=== PATIENT | female | born 1990 | race Caucasian/White ===

== ENCOUNTER → 2017-10-20 | Outpatient (CLI) | payer OTHER ==
[~2017-10-20] MED LIST: Silvadene20 GM TOP
== END ==
LOC: LAB EV 17:25 → LAB SHORT 17:25
DX: N39.0 Urinary tract infection, site not specified (principal)
CPT/HCPCS: 87077; 87086; 87186

== ENCOUNTER → 2017-12-13 | Outpatient (CLI) | payer OTHER | END | disposition home or self-care (01) | LOC: LAB 16:12 → LAB SHORT 16:12 | PROVIDERS: Obstetrics & Gynecology | DX: Z12.4 Encounter for screening for malignant neoplasm of cervix (principal) | CPT/HCPCS: G0123 ==

== ENCOUNTER → 2018-01-09 | Outpatient (CLI) | payer OTHER ==
[2018-01-09 18:52] LABS: BASOPHILS ABSOLUTE AUTO 0.05 K/mm3 (0.00-0.23); BASOPHILS PERCENT AUTO 1 % (0-2); EOSINOPHILS ABSOLUTE AUTO 0.16 K/mm3 (0.00-0.68); EOSINOPHILS PERCENT AUTO 2 % (0-6); Hematocrit 44.3 % (33.0-51.0); Hemoglobin 15.2 g/dL (11.5-16.0); IMMATURE GRAN ABSOLUTE AUTO 0.01 K/mm3 (0.00-0.10); IMMATURE GRAN PERCENT AUTO 0 % (0-1); LYMPHOCYTES ABSOLUTE AUTO 1.02 K/mm3 (0.84-5.20); LYMPHOCYTES PERCENT AUTO 12 % (21-46); MONOCYTES PERCENT AUTO 7 % (4-13); Mean Corpuscular HGB 28.1 pg (26.0-34.0); Mean Corpuscular HGB Conc 34.3 g/dL (31.5-36.5); Mean Corpuscular Volume 82 fL (80-100); Mean Platelet Volume 11.4 fL (9.1-12.4); NEUTROPHILS ABSOLUTE AUTO 6.85 K/mm3 (1.96-9.15); NEUTROPHILS PERCENT AUTO 79 % (41-73); NRBC ABSOLUTE 0.02 K/mm3 (0.00-0.02); NRBC Auto 0.2 /100 WBC (0.0-0.2); Platelet Count 260 K/mm3 (150-400); RDW Coefficient Variation 12.8 % (11.7-14.2); RDW Standard Deviation 37.4 fL (35.1-46.3); Red Blood Cell Count 5.41 M/mm3 (3.80-5.20); White Blood Cell Count 8.69 K/mm3 (4.00-11.30)
[2018-01-09 19:02] LABS: Alanine Aminotransfer (ALT/SGP 43 U/L (12-78); Albumin, Blood 4.3 g/dL (3.4-5.0); Albumin/Globulin Ratio 1.2 (0.8-1.8); Alk Phos 68 U/L (40-126); Anion Gap 14 mmol/L (6-16); Aspartate Aminotrans (AST/SGOT 20 U/L (12-37); Blood Urea Nitrogen 7 mg/dL (8-24); Bun/Creatinine Ratio 9.1 (12.0-20.0); CO2, Blood 24 mmol/L (21-32); Calcium, Blood 9.7 mg/dL (8.5-10.1); Chloride, Blood 101 mmol/L (98-108); Creatinine, Blood 0.77 mg/dL (0.40-1.00); Globulin, Blood 3.7 g/dL (2.2-4.0); Glomerular Filtration Rate >60 (60-); Glucose, Blood 96 mg/dL (70-99); Sodium, Blood 139 mmol/L (136-145)
== END | disposition home or self-care (01) ==
LOC: LAB EV 18:47 → LAB SHORT 18:47
PROVIDERS: Physician Assistant Medical
DX: R50.9 Fever, unspecified (principal)
CPT/HCPCS: 80053; 85025

== ENCOUNTER 2019-03-08 10:29 | Inpatient (IN) | payer OTHER ==
[~2019-03-08] VITALS: Ht 154.9 cm; Wt 110.0 kg
[2019-03-08 11:00] LABS: BASOPHILS ABSOLUTE AUTO 0.04 K/mm3 (0.00-0.23); BASOPHILS PERCENT AUTO 0 % (0-2); EOSINOPHILS ABSOLUTE AUTO 0.11 K/mm3 (0.00-0.68); EOSINOPHILS PERCENT AUTO 1 % (0-6); Hematocrit 38.6 % (33.0-51.0); Hemoglobin 12.8 g/dL (11.5-16.0); IMMATURE GRAN ABSOLUTE AUTO 0.04 K/mm3 (0.00-0.10); IMMATURE GRAN PERCENT AUTO 0 % (0-1); LYMPHOCYTES ABSOLUTE AUTO 2.13 K/mm3 (0.84-5.20); LYMPHOCYTES PERCENT AUTO 19 % (21-46); MONOCYTES ABSOLUTE AUTO 0.78 K/mm3 (0.16-1.47); MONOCYTES PERCENT AUTO 7 % (4-13); Mean Corpuscular HGB 28.1 pg (26.0-34.0); Mean Corpuscular HGB Conc 33.2 g/dL (31.5-36.5); Mean Corpuscular Volume 85 fL (80-100); Mean Platelet Volume 11.9 fL (9.1-12.4); NEUTROPHILS ABSOLUTE AUTO 8.29 K/mm3 (1.96-9.15); NEUTROPHILS PERCENT AUTO 73 % (41-73); Platelet Count 277 K/mm3 (150-400); RDW Coefficient Variation 14.6 % (11.7-14.2); RDW Standard Deviation 45.2 fL (35.1-46.3); Red Blood Cell Count 4.55 M/mm3 (3.80-5.20); White Blood Cell Count 11.39 K/mm3 (4.00-11.30)
[2019-03-09 05:25] LABS: BASOPHILS ABSOLUTE AUTO 0.04 K/mm3 (0.00-0.23); BASOPHILS PERCENT AUTO 0 % (0-2); EOSINOPHILS ABSOLUTE AUTO 0.07 K/mm3 (0.00-0.68); EOSINOPHILS PERCENT AUTO 1 % (0-6); Hematocrit 32.6 % (33.0-51.0); Hemoglobin 10.8 g/dL (11.5-16.0); IMMATURE GRAN ABSOLUTE AUTO 0.07 K/mm3 (0.00-0.10); IMMATURE GRAN PERCENT AUTO 1 % (0-1); LYMPHOCYTES ABSOLUTE AUTO 2.11 K/mm3 (0.84-5.20); LYMPHOCYTES PERCENT AUTO 14 % (21-46); MONOCYTES ABSOLUTE AUTO 1.43 K/mm3 (0.16-1.47); MONOCYTES PERCENT AUTO 10 % (4-13); Mean Corpuscular HGB 28.9 pg (26.0-34.0); Mean Corpuscular HGB Conc 33.1 g/dL (31.5-36.5); Mean Corpuscular Volume 87 fL (80-100); Mean Platelet Volume 12.1 fL (9.1-12.4); NEUTROPHILS ABSOLUTE AUTO 11.35 K/mm3 (1.96-9.15); NEUTROPHILS PERCENT AUTO 75 % (41-73); Platelet Count 244 K/mm3 (150-400); RDW Coefficient Variation 14.6 % (11.7-14.2); RDW Standard Deviation 46.5 fL (35.1-46.3); Red Blood Cell Count 3.74 M/mm3 (3.80-5.20); White Blood Cell Count 15.07 K/mm3 (4.00-11.30)
[2019-03-09 05:39] LABS: Glucose, Blood 101 mg/dL (70-99)
--- NOTE | 2019-03-09 14:00 | NUR ---
REPORT TO ALEN CRABTREE AT APPROX 1400
--- NOTE | 2019-03-09 19:42 | NUR ---
crying and anxious difficulty feeding, latched at this time and pt feels much better.
--- NOTE | 2019-03-10 14:34 | NUR ---
PT DISCHARGED HOME. DISCHARGE INSTRUCTIONS REVIEWED WITH PT AND SO, BOTH VERBALIZED UNDERSTANDING AND DENY ANY FURTHER QUESTIONS OR CONCERNS. PRESCRIPTIONS GIVEN TO PT. NO OBVIOUS OF ACUTE DISTRESS.
== END 2019-03-10 14:25 | disposition home or self-care (01) | DRG 806 ==
LOC: OBS 10:29 → BC 10:30 → OBS 10:33 → BC 21:43
PROVIDERS: ADMIT Nurse Practitioner Obstetrics & Gynecology
PROC: 10E0XZZ Delivery of Products of Conception, External Approach (ICD-10-PCS; principal; 2019-03-08)
PROC: 0KQM0ZZ Repair Perineum Muscle, Open Approach (ICD-10-PCS; 2019-03-08)
PROC: 3E0R3BZ Introduction of Anesthetic Agent into Spinal Canal, Percutaneous Approach (ICD-10-PCS; 2019-03-08)
DX: O24.420 Gestational diabetes mellitus in childbirth, diet controlled (principal); O98.42 Viral hepatitis complicating childbirth; Z37.0 Single live birth; B15.9 Hepatitis A without hepatic coma; Z3A.38 38 weeks gestation of pregnancy; Z88.0 Allergy status to penicillin; O70.1 Second degree perineal laceration during delivery; O66.0 Obstructed labor due to shoulder dystocia
CPT/HCPCS: 36415; 51702; 82947; 85025; 85460; 86900; 86901; 96372; J1885; J2001; J2210; J2590; J2790; J3010; J7120

== ENCOUNTER 2020-04-27 07:30 | Inpatient (IN) | payer BC, OTHER ==
[~2020-04-27] VITALS: Ht 154.9 cm; Wt 116.0 kg
[2020-04-27 11:40] LABS: BASOPHILS ABSOLUTE AUTO 0.05 K/mm3 (0.00-0.23); BASOPHILS PERCENT AUTO 1 % (0-2); EOSINOPHILS ABSOLUTE AUTO 0.05 K/mm3 (0.00-0.68); EOSINOPHILS PERCENT AUTO 1 % (0-6); Hematocrit 39.7 % (33.0-51.0); Hemoglobin 12.9 g/dL (11.5-16.0); IMMATURE GRAN ABSOLUTE AUTO 0.03 K/mm3 (0.00-0.10); IMMATURE GRAN PERCENT AUTO 0 % (0-1); LYMPHOCYTES ABSOLUTE AUTO 2.04 K/mm3 (0.84-5.20); LYMPHOCYTES PERCENT AUTO 20 % (21-46); MONOCYTES ABSOLUTE AUTO 0.84 K/mm3 (0.16-1.47); MONOCYTES PERCENT AUTO 8 % (4-13); Mean Corpuscular HGB 27.9 pg (26.0-34.0); Mean Corpuscular HGB Conc 32.5 g/dL (31.5-36.5); Mean Corpuscular Volume 86 fL (80-100); Mean Platelet Volume 12.6 fL (9.1-12.4); NEUTROPHILS ABSOLUTE AUTO 7.37 K/mm3 (1.96-9.15); NEUTROPHILS PERCENT AUTO 71 % (41-73); Platelet Count 232 K/mm3 (150-400); RDW Coefficient Variation 14.2 % (11.7-14.2); RDW Standard Deviation 43.8 fL (35.1-46.3); Red Blood Cell Count 4.63 M/mm3 (3.80-5.20); White Blood Cell Count 10.38 K/mm3 (4.00-11.30)
[2020-04-27 12:30] LABS: PCO2 Cord - Arterial 55.8 mmHg (40-50); PO2 Cord - Arterial 15.9 mmHg (16-20); pH Cord - Arterial 7.27 (7.28-7.35)
[2020-04-27 12:31] LABS: PCO2 Cord - Venous 38.5 mmHg (40-50); pH Umbilical Cord - Venous 7.35 (7.26-7.35)
--- NOTE | 2020-04-27 12:42 | NUR ---
04/27/20 1242 Floridalma Hooks 1216 DELIVERY VIABLE FEMALE INFANT WEIGHT 5080GM 11# 3OZ, HEAD 14 INCHES, CHEST 15 INCHES, LENGTH 21.5 INCHES, UMBILICAL CORD SEGMENT SENT WITH RT FOR CORD GASES, UMBILCAL CORD BLOOD COLLECTED FOR TYPE AND RH GIVEN TO RN, RIGHT AND LEFT FALLOPIAN TUBES AND LRG BOWEL SECTION FAT SENT TO PATHOLOGY, PLACENT 1385GM.
[2020-04-28 05:45] LABS: BASOPHILS ABSOLUTE AUTO 0.04 K/mm3 (0.00-0.23); BASOPHILS PERCENT AUTO 0 % (0-2); EOSINOPHILS ABSOLUTE AUTO 0.08 K/mm3 (0.00-0.68); EOSINOPHILS PERCENT AUTO 1 % (0-6); Hematocrit 29.7 % (33.0-51.0); Hemoglobin 9.7 g/dL (11.5-16.0); IMMATURE GRAN ABSOLUTE AUTO 0.03 K/mm3 (0.00-0.10); IMMATURE GRAN PERCENT AUTO 0 % (0-1); LYMPHOCYTES ABSOLUTE AUTO 1.55 K/mm3 (0.84-5.20); LYMPHOCYTES PERCENT AUTO 17 % (21-46); MONOCYTES ABSOLUTE AUTO 0.91 K/mm3 (0.16-1.47); MONOCYTES PERCENT AUTO 10 % (4-13); Mean Corpuscular HGB 28.3 pg (26.0-34.0); Mean Corpuscular HGB Conc 32.7 g/dL (31.5-36.5); Mean Corpuscular Volume 87 fL (80-100); Mean Platelet Volume 12.4 fL (9.1-12.4); NEUTROPHILS ABSOLUTE AUTO 6.42 K/mm3 (1.96-9.15); NEUTROPHILS PERCENT AUTO 71 % (41-73); Platelet Count 174 K/mm3 (150-400); RDW Coefficient Variation 14.3 % (11.7-14.2); RDW Standard Deviation 44.7 fL (35.1-46.3); Red Blood Cell Count 3.43 M/mm3 (3.80-5.20); White Blood Cell Count 9.03 K/mm3 (4.00-11.30)
--- NOTE | 2020-04-28 11:02 | NUR ---
PATIENT UP TO BATHROOM WITHOUT DIFFICULTY. VOIDED, ABDOMINAL BINDER IN PLACE.
--- NOTE | 2020-04-29 10:00 | NUR ---
RN ROUNDED TO HELP W/ . PT HAS NB ON AND FEEDING WELL. LATCH LOOKS WIDE, LIPS FLARRED. MOM STATES SHE DOES NOT HAVE ANY PAIN W/ CURRENT LATCH. MOM STATES HAS BEEN GOING WELL. INSTRUCTED PT ON CORRECT POSITIONING AND NIPPLE SHAPE AFTER FEEDS. PT VERBALIZED UNDERSTANDNING, DENIES ANY FURTHER QUESTIONS OR CONCERNS. FURTHER SUPPORT OFFERED IF PT DESIRES.
--- NOTE | 2020-04-29 10:18 | NUR ---
pt given written and verbal dc instructions. questions answered and will follow up within 1 week with her provider or sooner as needed. will follow up tomorrow here at [facility] at 1000. tdap given. declined flu vaccine. vss. extra pads and underwear given. written prescription given to fill at pharmacy. bands matched.
== END 2020-04-29 10:25 | disposition home or self-care (01) | DRG 785 ==
LOC: BC 09:35
PROVIDERS: ADMIT Obstetrics & Gynecology
PROC: 10D00Z1 Extraction of Products of Conception, Low, Open Approach (ICD-10-PCS; principal; 2020-04-27 10:00)
PROC: 0UT70ZZ Resection of Bilateral Fallopian Tubes, Open Approach (ICD-10-PCS; 2020-04-27 10:00)
PROC: 3E0234Z Introduction of Serum, Toxoid and Vaccine into Muscle, Percutaneous Approach (ICD-10-PCS; 2020-04-29)
DX: O24.420 Gestational diabetes mellitus in childbirth, diet controlled (principal); O36.63X0 Maternal care for excessive fetal growth, third trimester, not applicable or unspecified; Z3A.39 39 weeks gestation of pregnancy; Z37.0 Single live birth; O99.214 Obesity complicating childbirth; E66.01 Morbid (severe) obesity due to excess calories; Z23 Encounter for immunization; Z87.59 Personal history of other complications of pregnancy, childbirth and the puerperium
CPT/HCPCS: 36415; 82803; 82947; 85025; 85460; 86850; 86900; 86901; 88302; 88304; 90471; 96372; A9270; J0690; J1885; J2370; J2405; J2590; J2704; J2765; J2791; J3010; J7120; Q2038

== ENCOUNTER 2020-12-29 07:19 | Day surgery (SDC) | payer BC, OTHER ==
[~2020-12-29] VITALS: Ht 154.9 cm; Wt 119.6 kg
[2020-12-29] MEDS ORDERED: FLUOXETINE HCL20 M1 PO (07:36)
== END 2020-12-29 09:50 | disposition home or self-care (01) ==
LOC: ORSCSDS 07:19
PROVIDERS: Orthopaedic Surgery
PROC: 01N50ZZ Release Median Nerve, Open Approach (ICD-10-PCS; principal; 2020-12-29 08:30)
DX: G56.01 Carpal tunnel syndrome, right upper limb (principal); F32.9 Major depressive disorder, single episode, unspecified; E66.01 Morbid (severe) obesity due to excess calories; Z68.41 Body mass index [BMI] 40.0-44.9, adult; Z79.899 Other long term (current) drug therapy
CPT/HCPCS: J2250; J2704; J7120

== ENCOUNTER 2021-10-26 11:32 | Inpatient (IN) | payer BC, OTHER ==
[~2021-10-26] VITALS: Ht 154.9 cm; Wt 120.7 kg
[~2021-10-26 11:32] MED LIST changes: +FLUOXETINE HCL20 M1 PO
--- NOTE | 2021-10-27 03:12 | NUR ---
PT IS A&OX4, INDEPENDENT IN ROOM, AMBULATES FREELY AND IS ABLE TO MAKE NEEDS KNOWN. HERE FOR SPONTANEOUS PNEUMOTHORAX, CHEST TUBE INPLACE SET TO SUCTION, NO LEAKS. CHEST TUBE PRODUCING SMALL SEROSANG DRAINAGE. PAIN CONTROLLED WITH PRN NORCO. PT CALLS APPROPRIATELY. WILL CONTINUE TO MONITOR THIS PATIENT
--- NOTE | 2021-10-27 07:28 | NUR ---
ASSUMED CARE: PT SITTING UPRIGHT IN BED, 2L NC IN PLACE. DENIES PAIN OR SOB. CHEST TUBE TO RIGHT ANTERIOR CHEST. NO LEAK NOTED, CONNECTED TO LIS. PT DENIES FURTHER NEEDS OR CONCERNS AT THIS TIME.
--- NOTE | 2021-10-27 08:45 | NUR ---
DR GARCIA CAME TO SEE PT AND PLACED CT TO WATER SEAL WITH PLANS FOR CXR THIS AFTERNOON TO SEE HOW PNEUMO IS HOLDING UP UNDER THESE CONDITIONS. NO FURTHER NEEDS AT THIS TIME
--- NOTE | 2021-10-27 11:57 | NUR ---
PT CALLED STAFF INTO ROOM. STATED SHE FELT SOB. STATED SHE FELT LIKE SHE DID YESTERDAY AND HAD INCREASED WORK OF BREATHING WITH BREATHS IN BETWEEN WORDS. LUNG SOUNDS UNCHANGED FROM AM ASSESSMENT AND SATTING 99% ON 2L. MESSAGE LEFT FOR DR GARCIA TO LET HIM KNOW THAT SUCTION WAS RESTARTED
--- NOTE | 2021-10-27 13:07 | NUR ---
pt's visitor asked if dressing to chest tube could be changed due to being loose in places. due to being attached to chest tube, informed visitor and pt that it can't be changed but possibly reinforced. verified with gas charger and director who stated reinforcement was correct. Tegaderm applied to pt satisfaction.
--- NOTE | 2021-10-27 17:37 | NUR ---
SHIFT SUMMARY: PT HAS BEEN RECONNECTED TO SUCTION AND HAS NOT HAD TROUBLE BREATHING SINCE. 2L NC, DENIES SOB NOW. MEDICATED FOR PAIN MULTIPLE TIMES THIS SHIFT. FAMILY CAME TO VISIT PT THIS SHIFT. DENIES FURTHER NEEDS OR CONCERNS AT THIS TIME.
--- NOTE | 2021-10-28 03:04 | NUR ---
CHECKED ON CHEST TUBE, ADDED 300ML STERILE WATER TO WATER CHAMBER. PT O2 SAT STAYED >95% AND HR <70. BREATH SOUNDS REMAIN ABSENT ON RIGHT SIDE.
--- NOTE | 2021-10-28 05:24 | NUR ---
PT IS A&OX4, VSS, AND CALLS APPROPRIATELY. PT HAS CHEST TUBE FOR SPONTANEOUS PNEUMOTHORAX, CHEST TUBE SET TO SUCTION. PT IS >95% ON 2LNC, 300ML STERILE WATER ADDED TO WATER CHAMBER THIS SHIFT. PAIN CONTROLLED WITH NORCO 10. PT BREATH SOUNDS ON THE RIGHT SIDE CONTINUE TO BE FAINT WITH SOME CRACKLES AND WHEEZING AT THE BASES POSTERIOR AND ANTERIOR. PT INDEPENDENT IN BED, USES BSC TO VOID. WILL CONTINUE TO MONITOR THIS PATIENT
[2021-10-28] MEDS ORDERED: ACET325 PO (18:21)
--- NOTE | 2021-10-28 18:55 | NUR ---
SHIFT & DISCHARGE SUMMARY PT MEDS GIVEN ORDERED THROUGHOUT THE SHIFT. PT HAD INTERMITTENT EPISODES OF PAIN THROUGHOUT THE DAY WHICH WERE CONTROLLED WITH NORCO. PT'S CHEST TUBE WAS DISCONTINUED AND REMOVED. PT CLEARED BY PHYSICIAN AND DISCHARGED. PT WHEELED TO PERSONAL VEHICLE ALONG WITH ALL BELONGINGS. PT LOADED INTO VEHICLE AND DEPARTED W/O INCIDENT.
== END 2021-10-28 18:48 | disposition home or self-care (01) | DRG 201 ==
LOC: ER 11:32 → SURS 11:34
PROVIDERS: ADMIT Surgery
PROC: 0W9930Z Drainage of Right Pleural Cavity with Drainage Device, Percutaneous Approach (ICD-10-PCS; principal; 2021-10-26)
DX: J93.83 Other pneumothorax (principal); Z98.890 Other specified postprocedural states; Z88.1 Allergy status to other antibiotic agents; Z79.899 Other long term (current) drug therapy
CPT/HCPCS: 32551; 71045; 71046; 94760; 96372; 96374; 96375; 96376; 99285-25; A9270; G0378; J1650; J1885; J2405; J3010

== ENCOUNTER 2021-11-29 07:43 | Day surgery (SDC) | payer BC, OTHER ==
[~2021-11-29] VITALS: Ht 154.9 cm; Wt 123.2 kg
[~2021-11-29 07:43] MED LIST changes: +ACET325 PO
== END 2021-11-29 09:39 | disposition home or self-care (01) ==
LOC: ORSCSDS 07:43
PROVIDERS: Orthopaedic Surgery
PROC: 01N50ZZ Release Median Nerve, Open Approach (ICD-10-PCS; principal; 2021-11-29 09:00)
DX: G56.02 Carpal tunnel syndrome, left upper limb (principal); F32.A Depression, unspecified; E66.01 Morbid (severe) obesity due to excess calories; Z68.43 Body mass index [BMI] 50.0-59.9, adult; Z79.899 Other long term (current) drug therapy
CPT/HCPCS: J2250; J2405; J2704; J3010; J7120

== ENCOUNTER → 2022-07-12 | Outpatient (CLI) | payer OTHER ==
[2022-07-13 12:32] LABS: Influenza A, PCR NEGATIVE (NEGATIVE); Influenza B, PCR NEGATIVE (NEGATIVE); Resp Syncytial Virus, PCR NEGATIVE (NEGATIVE); SARS-Cov-2 (COVID-19) PCR, MMC NEGATIVE (NEGATIVE)
== END | disposition home or self-care (01) ==
LOC: LAB SHORT 14:55
PROVIDERS: Physician Assistant
DX: R05.9 Cough, unspecified (principal); R50.9 Fever, unspecified
CPT/HCPCS: 0241U

== ENCOUNTER 2022-11-07 23:38 | Emergency (ER) | payer OTHER ==
[~2022-11-07] VITALS: Ht 154.9 cm; Wt 124.7 kg
[2022-11-07 23:50] VITALS: BP 118/73
[2022-11-08 01:46] LABS: Influenza A, PCR NEGATIVE (NEGATIVE); Influenza B, PCR NEGATIVE (NEGATIVE); Resp Syncytial Virus, PCR NEGATIVE (NEGATIVE)
[2022-11-08 02:06] LABS: SARS-Cov-2 (COVID-19) PCR, MMC POSITIVE (NEGATIVE)
[2022-11-08] MEDS ORDERED: METFORMIN HCL500 M2 PO (02:26)
== END 2022-11-08 02:15 | disposition home or self-care (01) ==
LOC: ER 23:38
PROVIDERS: Student in an Organized Health Care Education/Training Program
DX: U07.1 COVID-19 (principal); Z88.0 Allergy status to penicillin; Z91.048 Other nonmedicinal substance allergy status
CPT/HCPCS: 0241U; 99283

== ENCOUNTER → 2022-11-26 | Outpatient (CLI) | payer OTHER ==
[~2022-11-26] MED LIST changes: +METFORMIN HCL500 M2 PO
== END ==
LOC: LAB 10:15 → LAB SHORT 10:15
DX: N39.0 Urinary tract infection, site not specified (principal)
CPT/HCPCS: 87077; 87086; 87186

== ENCOUNTER 2023-02-22 19:49 | Emergency (ER) | payer BC, OTHER ==
[~2023-02-22] VITALS: Ht 154.9 cm; Wt 117.0 kg
[2023-02-22 20:57] LABS: BASOPHILS ABSOLUTE AUTO 0.05 K/mm3 (0.00-0.23); BASOPHILS PERCENT AUTO 1 % (0-2); EOSINOPHILS ABSOLUTE AUTO 0.38 K/mm3 (0.00-0.68); EOSINOPHILS PERCENT AUTO 4 % (0-6); Hematocrit 43.3 % (33.0-51.0); IMMATURE GRAN ABSOLUTE AUTO 0.03 K/mm3 (0.00-0.10); IMMATURE GRAN PERCENT AUTO 0 % (0-1); LYMPHOCYTES ABSOLUTE AUTO 1.97 K/mm3 (0.84-5.20); LYMPHOCYTES PERCENT AUTO 23 % (21-46); MONOCYTES ABSOLUTE AUTO 0.77 K/mm3 (0.16-1.47); MONOCYTES PERCENT AUTO 9 % (4-13); Mean Corpuscular HGB Conc 34.6 g/dL (31.5-36.5); Mean Corpuscular Volume 81 fL (80-100); Mean Platelet Volume 11.4 fL (9.1-12.4); NEUTROPHILS ABSOLUTE AUTO 5.48 K/mm3 (1.96-9.15); NEUTROPHILS PERCENT AUTO 63 % (41-73); Platelet Count 312 K/mm3 (150-400); RDW Standard Deviation 37.5 fL (35.1-46.3); Red Blood Cell Count 5.36 M/mm3 (3.80-5.20); White Blood Cell Count 8.68 K/mm3 (4.00-11.30)
[2023-02-22 21:27] LABS: Albumin, Blood 3.7 g/dL (3.4-5.0); Albumin/Globulin Ratio 0.9 (0.8-1.8); Bilirubin, Total 0.7 mg/dL (0.1-1.0); Bun/Creatinine Ratio 20.8 (12.0-20.0); Calcium, Blood 9.4 mg/dL (8.5-10.1); Creatinine, Blood 0.58 mg/dL (0.40-1.00); Globulin, Blood 4.2 g/dL (2.2-4.0); Total Protein, Blood 7.9 g/dL (6.4-8.2)
[2023-02-22 23:45] VITALS: BP 135/93
[2023-02-22] MEDS ORDERED: DOCU100 PO (23:46)
[2023-02-22] MEDS ORDERED: ACET500 PO (23:46)
== END 2023-02-22 23:50 | disposition home or self-care (01) ==
LOC: ER 19:49
PROVIDERS: Physician Assistant
DX: G89.18 Other acute postprocedural pain (principal); R10.32 Left lower quadrant pain; R11.2 Nausea with vomiting, unspecified; Z98.84 Bariatric surgery status; Z88.0 Allergy status to penicillin; Z88.8 Allergy status to other drugs, medicaments and biological substances; Z79.84 Long term (current) use of oral hypoglycemic drugs; Z87.891 Personal history of nicotine dependence
CPT/HCPCS: 36415; 74177; 80053; 85025; 96361; 96374-59; 96375; 99284-25; J1885; J2405; J7030; Q9967

== ENCOUNTER 2024-01-01 16:22 | Emergency (ER) | payer BC ==
[~2024-01-01] VITALS: Ht 154.9 cm; Wt 79.4 kg
[~2024-01-01 16:22] MED LIST changes: +ACET500 PO; +DOCU100 PO
[2024-01-01 16:26] VITALS: BP 109/76
[2024-01-01] MEDS ORDERED: BUDESONIDE-FO10.2 G2 (18:03)
== END 2024-01-01 18:13 | disposition home or self-care (01) ==
LOC: ER 16:22
DX: J93.0 Spontaneous tension pneumothorax (principal); F17.200 Nicotine dependence, unspecified, uncomplicated; Z88.0 Allergy status to penicillin; Z88.6 Allergy status to analgesic agent; Z91.048 Other nonmedicinal substance allergy status; Z79.899 Other long term (current) drug therapy; Z98.84 Bariatric surgery status
CPT/HCPCS: 71046; 99283-25

== ENCOUNTER 2024-01-02 10:15 | Emergency (ER) | payer BC ==
[~2024-01-02] VITALS: Ht 154.9 cm; Wt 79.4 kg
[~2024-01-02 10:15] MED LIST changes: +BUDESONIDE-FO10.2 G2
[2024-01-02] MEDS ORDERED: Methocarbamol 500 MG Tab PO ONE (10:55)
[2024-01-02] MEDS ORDERED: OxyCODONE HCL 5 MG TAB PO ONE (10:55)
[2024-01-02] MEDS ORDERED: Acetaminophen 500 MG Tab PO ONE (10:55)
[2024-01-02] MEDS ORDERED: HYDROmorphone HCl/Pf 1MG SYR IV ONE (14:45)
[2024-01-02] MEDS ORDERED: [UNRECOGNIZED DRUG - OTHER] INFIL ONE (14:45)
[2024-01-02] MEDS ORDERED: Lidocaine 2%-Epineph 1:100000 20 ML MDV XX ONE (14:50)
[2024-01-02 19:00] VITALS: BP 99/64
== END 2024-01-02 19:10 | disposition short-term general hospital (02) ==
LOC: ER 10:15
DX: J93.9 Pneumothorax, unspecified (principal); F17.200 Nicotine dependence, unspecified, uncomplicated; Z88.1 Allergy status to other antibiotic agents; Z88.8 Allergy status to other drugs, medicaments and biological substances
CPT/HCPCS: 32551; 71045; 71046; 96374-59; 99284-25; A9270; J1170

== ENCOUNTER 2024-04-12 13:43 | Emergency (ER) | payer BC ==
[~2024-04-12] VITALS: Ht 157.5 cm; Wt 77.1 kg
[2024-04-12 15:35] LABS: BASOPHILS ABSOLUTE AUTO 0.06 K/mm3 (0.00-0.23); BASOPHILS PERCENT AUTO 1 % (0-2); EOSINOPHILS ABSOLUTE AUTO 0.54 K/mm3 (0.00-0.68); EOSINOPHILS PERCENT AUTO 6 % (0-6); Hematocrit 41.3 % (33.0-51.0); Hemoglobin 13.6 g/dL (11.5-16.0); IMMATURE GRAN ABSOLUTE AUTO 0.03 K/mm3 (0.00-0.10); IMMATURE GRAN PERCENT AUTO 0 % (0-1); LYMPHOCYTES ABSOLUTE AUTO 2.12 K/mm3 (0.84-5.20); LYMPHOCYTES PERCENT AUTO 23 % (21-46); MONOCYTES PERCENT AUTO 7 % (4-13); Mean Corpuscular HGB 26.5 pg (26.0-34.0); Mean Corpuscular HGB Conc 32.9 g/dL (31.5-36.5); Mean Corpuscular Volume 80 fL (80-100); Mean Platelet Volume 11.7 fL (9.1-12.4); NEUTROPHILS ABSOLUTE AUTO 5.94 K/mm3 (1.96-9.15); NEUTROPHILS PERCENT AUTO 64 % (41-73); Platelet Count 279 K/mm3 (150-400); RDW Coefficient Variation 13.1 % (11.7-14.2); RDW Standard Deviation 38.1 fL (35.1-46.3); Red Blood Cell Count 5.14 M/mm3 (3.80-5.20); White Blood Cell Count 9.29 K/mm3 (4.00-11.30)
[2024-04-12 15:46] LABS: Albumin, Blood 3.6 g/dL (3.4-5.0); Albumin/Globulin Ratio 0.9 (0.8-1.8); Bilirubin, Total 0.4 mg/dL (0.1-1.0); Bun/Creatinine Ratio 18.1 (12.0-20.0); Calcium, Blood 9.3 mg/dL (8.5-10.1); Creatinine, Blood 0.5 mg/dL (0.40-1.00); Globulin, Blood 3.8 g/dL (2.2-4.0); Potassium, Blood 3.9 mmol/L (3.5-5.5); Total Protein, Blood 7.4 g/dL (6.4-8.2)
[2024-04-12 17:05] VITALS: BP 103/72
== END 2024-04-12 17:13 | disposition home or self-care (01) ==
LOC: ER 13:43
PROVIDERS: Physician Assistant
DX: R04.2 Hemoptysis (principal); Z87.891 Personal history of nicotine dependence; Z79.51 Long term (current) use of inhaled steroids; Z79.899 Other long term (current) drug therapy; Z88.0 Allergy status to penicillin; Z88.6 Allergy status to analgesic agent; Z91.048 Other nonmedicinal substance allergy status
CPT/HCPCS: 71260; 80053; 84703; 85025; 85379; 99284-25; Q9967

== ENCOUNTER 2025-03-02 19:11 | Emergency (ER) | payer OTHER ==
[~2025-03-02] VITALS: Ht 154.9 cm; Wt 69.4 kg
[2025-03-02 19:50] LABS: BASOPHILS ABSOLUTE AUTO 0.06 K/mm3 (0.00-0.23); BASOPHILS PERCENT AUTO 1 % (0-2); EOSINOPHILS ABSOLUTE AUTO 0.42 K/mm3 (0.00-0.68); EOSINOPHILS PERCENT AUTO 4 % (0-6); Hematocrit 39.6 % (33.0-51.0); Hemoglobin 12.8 g/dL (11.5-16.0); IMMATURE GRAN ABSOLUTE AUTO 0.02 K/mm3 (0.00-0.10); IMMATURE GRAN PERCENT AUTO 0 % (0-1); LYMPHOCYTES ABSOLUTE AUTO 2.64 K/mm3 (0.84-5.20); LYMPHOCYTES PERCENT AUTO 27 % (21-46); MONOCYTES ABSOLUTE AUTO 0.61 K/mm3 (0.16-1.47); MONOCYTES PERCENT AUTO 6 % (4-13); Mean Corpuscular HGB Conc 32.3 g/dL (31.5-36.5); Mean Corpuscular Volume 78 fL (80-100); NEUTROPHILS ABSOLUTE AUTO 6.06 K/mm3 (1.96-9.15); NEUTROPHILS PERCENT AUTO 62 % (41-73); NRBC ABSOLUTE 0.00 K/mm3 (0.00-0.02); NRBC Auto 0.0 /100 WBC (0.0-0.2); Platelet Count 267 K/mm3 (150-400); RDW Coefficient Variation 15.9 % (11.7-14.2); RDW Standard Deviation 42.5 fL (35.1-46.3)
[2025-03-02 20:08] LABS: Alanine Aminotransfer (ALT/SGP 37.0 U/L (12-78); Albumin, Blood 4.1 g/dL (3.4-5.0); Albumin/Globulin Ratio 1.2 (0.8-1.8); Anion Gap 6.0 mmol/L (3-11); Aspartate Aminotrans (AST/SGOT 29.0 U/L (12-37); Bilirubin, Total 0.4 mg/dL (0.1-1.0); Blood Urea Nitrogen 10.0 mg/dL (8-24); CO2, Blood 25.0 mmol/L (21-32); Calcium, Blood 9.0 mg/dL (8.5-10.1); Chloride, Blood 108.0 mmol/L (98-108); Creatinine, Blood 0.67 mg/dL (0.40-1.00); Globulin, Blood 3.4 g/dL (2.2-4.0); Glucose, Blood 101.0 mg/dL (70-99); Potassium, Blood 4.2 mmol/L (3.5-5.5); Sodium, Blood 135.0 mmol/L (136-145); Total Protein, Blood 7.5 g/dL (6.4-8.2)
[2025-03-02 21:36] VITALS: BP 95/62
== END 2025-03-02 21:37 | disposition home or self-care (01) ==
LOC: ER 19:11
PROVIDERS: Physician Assistant
DX: R07.89 Other chest pain (principal); Z87.891 Personal history of nicotine dependence; Z88.0 Allergy status to penicillin; Z88.6 Allergy status to analgesic agent; Z91.048 Other nonmedicinal substance allergy status; Z79.51 Long term (current) use of inhaled steroids
CPT/HCPCS: 71046; 80053; 85025; 93005; 93010; 99285-25

== ENCOUNTER → 2025-04-16 | Outpatient (CLI) | payer OTHER | LOC: LAB 17:13 → LAB SHORT 17:13 | DX: N39.0 Urinary tract infection, site not specified (principal) | CPT/HCPCS: 87077; 87086; 87186 ==

== ENCOUNTER 2025-06-02 06:02 | Day surgery (SDC) | payer OTHER ==
[~2025-06-02] VITALS: Ht 154.9 cm; Wt 78.6 kg
[2025-06-02] VITALS (16 sets, daily range): BP systolic 89–106; BP diastolic 52–65
[~2025-06-02 06:02] MED LIST changes: +ALBU90OI INH; +Cymbalta20 MG PO; +HYDHCL25 PO; +ROPI.25 PO; +SYMBICORT 160-4.6 GM INH; +TRAZ50 PO
[2025-06-02] MEDS ORDERED: CeFAZolin Sodium 2,000 MG in NS 100 ML IV SCH (06:20)
--- NOTE | 2025-06-02 06:45 | NUR ---
Pre-Op teaching done. Pt verbalizes understanding. Ambulatory in Day Surgery. History, Chart, Medications and Allergies reviewed before start of procedure. Patient confirms NPO status and agrees with scheduled surgery. Patient States Post-Procedure ride home has been arranged.
[2025-06-02] MEDS ORDERED: Bupivacaine 0.5% W/EPI 1:200000 SDV 30 ML Vial ONE (07:07)
[2025-06-02] MEDS ORDERED: FentaNYL Citrate 50 MCG/ML 2 ML Injection ONE (07:19)
[2025-06-02] MEDS ORDERED: Rocuronium Bromide 10 MG/ML 5ML Injection IV ONE ×2 (07:23→08:32)
[2025-06-02] MEDS ORDERED: Prochlorperazine Edisylate 10 mg Vial IV PRN (07:35)
[2025-06-02] MEDS ORDERED: Albuterol 2.5 MG/3 ML VIAL INH PRN (07:35)
[2025-06-02] MEDS ORDERED: FentaNYL Citrate 50 MCG/ML 2 ML Injection IV PRN ×3 (07:35→09:35)
[2025-06-02] MEDS ORDERED: HYDROmorphone HCl/Pf 1MG SYR IV PRN ×2 (07:35)
[2025-06-02] MEDS ORDERED: Ondansetron HCl 2 MG / ML 2ML Vial ONE (07:39)
[2025-06-02] MEDS ORDERED: Dexamethasone Sod Phos 10 MG/ML 1ML VIAL ONE (07:39)
[2025-06-02] MEDS ORDERED: Glycopyrrolate 0.2 MG/ML 5ML VIAL ONE (08:01)
[2025-06-02] MEDS ORDERED: HYDROmorphone HCl/Pf 1MG SYR ONE ×2 (09:11→09:43)
[2025-06-02] MEDS ORDERED: Sugammadex Sodium 200 MG/2ML SDV (100 MG/ML) ONE (09:12)
[2025-06-02] MEDS ORDERED: Ondansetron HCl 2 MG / ML 2ML Vial IV PRN (09:30)
[2025-06-02] MEDS ORDERED: FLU VACC TS2025-26(6MOS UP)/PF 45 MCG/0.5 ML SYRINGE IM SCH (09:35)
[2025-06-02] MEDS ORDERED: Ketorolac Tromethamine 30mg Vial ONE (09:51)
[2025-06-02] MEDS ORDERED: Ketorolac Tromethamine 30mg Vial IV ONE (10:00)
--- NOTE | 2025-06-02 10:24 | NUR ---
PT ARRIVED TO 224 ON GURNEY TRANSFERRED PT TO BED AND INSTRUCTED PT ON USE OF CALL LIGHT, PLACING WITHIN REACH. LAP SITES TO ABD CDI W/TISS ADHESIVE. DOMINGO PAD IN PLACE; CDI. WATER AND SNACKS PROVIDED.
[2025-06-02] MEDS ORDERED: Ketorolac Tromethamine 30mg Vial IV SCH (12:00)
[2025-06-02] MEDS ORDERED: ACET500 PO (15:13)
[2025-06-02] MEDS ORDERED: OXYC5 PO (15:14)
--- NOTE | 2025-06-02 16:51 | NUR ---
SUMMARY NO ACUTE CHANGES SINCE ARRIVING TO 224 FROM PACU. PT WAS INITIALLY HYPOTENSIVE W/SBP IN 90S BUT MOST CURRENT SBP IN LOW 100S. PT WAS NAUSEATED THIS AFTERNOON, MEDICATED PER ORDERS AND PT REPORTED IMPROVEMENT. PAIN MANAGED PER PO PAIN MEDS. PT HAS NOT AMBULATED OTHER THAN TO BSC TO VOID. CALL LIGHT IN REACH.
[2025-06-03 00:47] VITALS: BP 98/61
--- NOTE | 2025-06-03 03:36 | NUR ---
SHIFT SUMMARY POD 1 ROBOTIC LAP HYSTER. ABD INCISIONS CDI; CLOSED WITH TISSUE ADHESIVE, NO DRAINAGE NOTED. PT REPORTS SCANT VAGINAL BLEEDING. PAIN MANAGED PER EMAR. SHAHAB PO INTAKE. IV PATENT/SL. IS A/OX4. IND IN ROOM. SOFT BP T/O NIGHT, PT DENIES DIZZINESS. IS VOIDING AND PASSING SMALL AMOUNT OF FLATUS. PT CURRENTLY RESTING IN BED WITH CALL LIGHT IN REACH, EYES CLOSED AND RESP EVEN. PLAN FOR POSSIBLE DISCHARGE TODAY. WILL GIVE REPORT TO COMING RN.
[2025-06-03] MEDS ORDERED: Ketorolac Tromethamine 30mg Vial IV ONE (05:35)
[2025-06-03 05:51] VITALS: BP 99/66
[2025-06-03 07:52] VITALS: BP 93/62
--- NOTE | 2025-06-03 10:17 | NUR ---
PT REPORTS DIZZINESS THIS AM SBP IN 90S, URINE DARK. PT TAKING FLUIDS. PUT CALL OUT TO DR BLACKMAN.
--- NOTE | 2025-06-03 10:28 | NUR ---
DR BLACKMAN IN TO SEE PT.
[2025-06-03] MEDS ORDERED: NS 1,000 ML IV ONE (10:35)
[2025-06-03 11:08] LABS: BASOPHILS ABSOLUTE AUTO 0.03 K/mm3 (0.00-0.23); BASOPHILS PERCENT AUTO 0 % (0-2); EOSINOPHILS ABSOLUTE AUTO 0.12 K/mm3 (0.00-0.68); EOSINOPHILS PERCENT AUTO 1 % (0-6); Hematocrit 37.0 % (33.0-51.0); Hemoglobin 12.5 g/dL (11.5-16.0); IMMATURE GRAN ABSOLUTE AUTO 0.03 K/mm3 (0.00-0.10); IMMATURE GRAN PERCENT AUTO 0 % (0-1); LYMPHOCYTES ABSOLUTE AUTO 2.70 K/mm3 (0.84-5.20); LYMPHOCYTES PERCENT AUTO 27 % (21-46); MONOCYTES ABSOLUTE AUTO 0.88 K/mm3 (0.16-1.47); MONOCYTES PERCENT AUTO 9 % (4-13); Mean Corpuscular HGB Conc 33.8 g/dL (31.5-36.5); Mean Corpuscular Volume 86 fL (80-100); NEUTROPHILS ABSOLUTE AUTO 6.40 K/mm3 (1.96-9.15); NEUTROPHILS PERCENT AUTO 63 % (41-73); NRBC ABSOLUTE 0.00 K/mm3 (0.00-0.02); NRBC Auto 0.0 /100 WBC (0.0-0.2); Platelet Count 222 K/mm3 (150-400); RDW Coefficient Variation 13.9 % (11.7-14.2); RDW Standard Deviation 43.4 fL (35.1-46.3)
[2025-06-03 11:41] LABS: Anion Gap 9.0 mmol/L (3-11); Blood Urea Nitrogen 12.0 mg/dL (8-24); CO2, Blood 23.0 mmol/L (21-32); Calcium, Blood 8.5 mg/dL (8.5-10.1); Chloride, Blood 111.0 mmol/L (98-108); Creatinine, Blood 0.5 mg/dL (0.40-1.00); Glucose, Blood 92.0 mg/dL (70-99); Potassium, Blood 4.3 mmol/L (3.5-5.5); Sodium, Blood 139.0 mmol/L (136-145)
[2025-06-03 12:49] VITALS: BP 103/62
[2025-06-03 15:35] VITALS: BP 102/61
--- NOTE | 2025-06-03 16:56 | NUR ---
PT WANTS TO DC HOME NOTIFIED DR BLACKMAN WHO IS AGREEABLE WITH THAT PLAN. PT PAIN CONTROLLED WITH PO PAIN MEDS, VSS, AMBULATED INDEPENDENTLY AND TOLERATED DIET.
[2025-06-03 17:00] VITALS: BP 96/67
--- NOTE | 2025-06-03 17:20 | NUR ---
DISCHARGED REVIEWED DC INSTRUCTIONS W/PT. VSS. NOTIFIED DR BLACKMAN OF LAST VS. ADVISED PT TO DRINK PLENTY OF FLUIDS. PT VERBALIZED UNDERSTANDING OF DC INSTRUCTIONS. PT LEFT UNIT ACCOMPANIED BY FRIEND WHO HAD DC PAPERWORK IN POSSESSIONS IN HAND. PT WHEELED OUT IN WC TO FRIEND'S CAR AT [place] ENTRANCE.
== END 2025-06-03 17:11 | disposition home or self-care (01) ==
LOC: ORSCMMR 06:02 → ORD 07:30 → SURS 10:06 → ORD 12:30 → ORSCMMR 06-03 17:11
PROVIDERS: Obstetrics & Gynecology
PROC: 0UT94ZZ Resection of Uterus, Percutaneous Endoscopic Approach (ICD-10-PCS; principal; 2025-06-02 07:30)
PROC: 0UB74ZZ Excision of Bilateral Fallopian Tubes, Percutaneous Endoscopic Approach (ICD-10-PCS; principal; 2025-06-02 07:30)
DX: N92.1 Excessive and frequent menstruation with irregular cycle (principal); E28.2 Polycystic ovarian syndrome; D50.8 Other iron deficiency anemias; F41.8 Other specified anxiety disorders; J45.909 Unspecified asthma, uncomplicated; Z79.899 Other long term (current) drug therapy; F17.210 Nicotine dependence, cigarettes, uncomplicated
CPT/HCPCS: 36415; 80048; 85025; 86850; 86900; 86901; 88307; A9270; J0690; J1100; J1171; J1885; J2405; J2704; J3010; J7030; J7120

== ENCOUNTER 2025-06-17 14:39 | Emergency (ER) | payer OTHER ==
[~2025-06-17] VITALS: Ht 154.9 cm; Wt 73.9 kg
[~2025-06-17 14:39] MED LIST changes: +OXYC5 PO
[2025-06-17 15:11] LABS: BASOPHILS ABSOLUTE AUTO 0.07 K/mm3 (0.00-0.23); BASOPHILS PERCENT AUTO 1 % (0-2); EOSINOPHILS ABSOLUTE AUTO 0.24 K/mm3 (0.00-0.68); EOSINOPHILS PERCENT AUTO 2 % (0-6); Hematocrit 44.1 % (33.0-51.0); Hemoglobin 15.2 g/dL (11.5-16.0); IMMATURE GRAN ABSOLUTE AUTO 0.03 K/mm3 (0.00-0.10); IMMATURE GRAN PERCENT AUTO 0 % (0-1); LYMPHOCYTES ABSOLUTE AUTO 2.21 K/mm3 (0.84-5.20); LYMPHOCYTES PERCENT AUTO 19 % (21-46); MONOCYTES ABSOLUTE AUTO 0.65 K/mm3 (0.16-1.47); MONOCYTES PERCENT AUTO 6 % (4-13); Mean Corpuscular HGB Conc 34.5 g/dL (31.5-36.5); Mean Corpuscular Volume 84 fL (80-100); NEUTROPHILS ABSOLUTE AUTO 8.19 K/mm3 (1.96-9.15); NEUTROPHILS PERCENT AUTO 72 % (41-73); NRBC ABSOLUTE 0.00 K/mm3 (0.00-0.02); NRBC Auto 0.0 /100 WBC (0.0-0.2); Platelet Count 284 K/mm3 (150-400); RDW Coefficient Variation 12.4 % (11.7-14.2); RDW Standard Deviation 37.5 fL (35.1-46.3)
[2025-06-17] MEDS ORDERED: Ketorolac Tromethamine 15mg Vial IV ONE (15:15)
[2025-06-17 15:33] LABS: Alanine Aminotransfer (ALT/SGP 33.0 U/L (12-78); Albumin, Blood 4.2 g/dL (3.4-5.0); Albumin/Globulin Ratio 1.3 (0.8-1.8); Anion Gap 8.0 mmol/L (3-11); Aspartate Aminotrans (AST/SGOT 25.0 U/L (12-37); Bilirubin, Total 0.8 mg/dL (0.1-1.0); Blood Urea Nitrogen 8.0 mg/dL (8-24); CO2, Blood 23.0 mmol/L (21-32); Calcium, Blood 9.2 mg/dL (8.5-10.1); Chloride, Blood 108.0 mmol/L (98-108); Creatinine, Blood 0.45 mg/dL (0.40-1.00); Globulin, Blood 3.2 g/dL (2.2-4.0); Glucose, Blood 98.0 mg/dL (70-99); Potassium, Blood 4.1 mmol/L (3.5-5.5); Sodium, Blood 135.0 mmol/L (136-145); Total Protein, Blood 7.4 g/dL (6.4-8.2)
[2025-06-17] MEDS ORDERED: NS 1,000 ML IV SCH (16:20)
[2025-06-17 16:43] VITALS: BP 112/73
[2025-06-17 17:10] LABS: Source, Urine Clean Catch
[2025-06-17 17:14] LABS: Bilirubin, Urine Neg (Neg); Color, Urine Yellow (P-Yellow); Glucose Qualitative, Urine Neg (Neg); Ketones, Urine 2+ (Neg); Leukocyte Esterase, Urine Neg (Neg); Protein, Urine 1+ (Neg); Specific Gravity, Urine 1.005 (1.003-1.022); Urobilinogen, Urine NORM (Normal)
[2025-06-17 17:21] LABS: White Blood Cells, Urine 0-2 /hpf (0-5)
== END 2025-06-17 18:00 | disposition home or self-care (01) ==
LOC: ER 14:39
PROVIDERS: Physician Assistant
DX: R10.30 Lower abdominal pain, unspecified (principal); N93.9 Abnormal uterine and vaginal bleeding, unspecified; F17.200 Nicotine dependence, unspecified, uncomplicated; Z90.710 Acquired absence of both cervix and uterus
CPT/HCPCS: 74177; 80053; 81001; 83690; 85025; 96374-59; 99284-25; J1885; J7030; Q9967